=== PATIENT | male | born 1960 | race Caucasian/White ===

== ENCOUNTER → 2017-08-21 | Outpatient (CLI) | payer OTHER ==
[~2017-08-21] MED LIST: COZAAR 50 MG TA50 M2 PO; IRON325 PO; NUVIGIL250 MG PO; OMEPRAZOLE 20 M20 MG PO; PROZAC20 MG PO; ZOCOR20 MG PO
== END ==
LOC: M.MRI 09:15
DX: M48.061 Spinal stenosis, lumbar region without neurogenic claudication (principal); M54.16 Radiculopathy, lumbar region; M51.25 Other intervertebral disc displacement, thoracolumbar region; M51.27 Other intervertebral disc displacement, lumbosacral region; M47.897 Other spondylosis, lumbosacral region; M47.896 Other spondylosis, lumbar region; I10 Essential (primary) hypertension

== ENCOUNTER 2018-12-03 10:45 | Inpatient (IN) | payer OTHER ==
[~2018-12-03] VITALS: Ht 177.8 cm; Wt 116.1 kg
--- NOTE | ~2018-12-03 | CON ---
[address] [address] CONSULTATION Name: JEREMI ZARATE Room: [address] [facility].#: [id number] Admission: 12/03/18 Attend Phys: Queta Sánchez Discharge: Date of : 62 Report #: [id number] THIS REPORT FOR: //name// CC: Zen Beaulieu HISTORY OF PRESENT ILLNESS: The patient is a pleasant 58-year-old gentleman with past medical history significant for hypertension, osteoarthritis and gastroesophageal reflux disease is presenting with abdominal pain, nausea, vomiting for the last 2 days. The patient reports that his emesis was black in color and 2 days back he began having black maroon-colored stools as well. The patient denies having marquise blood in the stools or in his emesis. The patient denies any trouble swallowing. He does have daily reflux symptoms, which are well controlled on once a day, omeprazole. The patient denies any weight loss or other alarm symptoms at this time. The patient does admit using 4-6 tablets of ibuprofen every other day and has been doing this for the last several years. The patient also admits to taking some Pepto-Bismol over the last 2 days due to dyspepsia. PAST MEDICAL HISTORY: Hypertension, osteoarthritis, gastroesophageal reflux disease. PAST SURGICAL HISTORY: The patient had a bicep tendon repair. SOCIAL HISTORY: The patient quit smoking tobacco a few years back. The patient reports taking 4-6 alcoholic drinks per day. Denies any recreational drug use. FAMILY HISTORY: Significant for liver cancer in the mother, but there is no history of colorectal cancer. REVIEW OF SYSTEMS: Negative except for what was mentioned in the HPI. PHYSICAL EXAMINATION: VITAL SIGNS: Temperature 36.4, heart rate 121, respirations 20, blood pressure 146/100, pulse ox 99% on room air. GENERAL: The patient is alert, awake, oriented x 3. HEENT: Pupils are equal, round, reactive to light and accommodation. Mucous membranes are moist. There is no congestion. LUNGS: Clear to auscultation bilaterally. CARDIOVASCULAR: Rate and rhythm regular, S1, S2 present. ABDOMEN: Soft. There is no distention, guarding or rigidity. EXTREMITIES: Warm, well perfused. There is no edema. SKIN: Warm and dry. LABORATORY DATA: Hemoglobin 15.9, hematocrit 47.1, platelet count 269, WBC count 10.1. Sodium 140, potassium 3.5, chloride 101, bicarbonate 27, BUN 14, creatinine 1.3. CT abdomen and pelvis, no acute finding in [place] [address] CONSULTATION Name: JEREMI ZARATE Room: [address] [place] [facility].#: [id number] Admission: 12/03/18 Attend Phys: Queta Sánchez Discharge: Date of : 62 Report #: [id number]. ASSESSMENT AND PLAN: Pleasant 58-year-old gentleman with history outlined above, presents with epigastric abdominal pain, nausea and dark colored stools. There is a history significant for NSAID use on a regular basis. I would recommend upper GI evaluation to rule out peptic ulcer disease. Further recommendations can be based on results of the chest. By: [id number] Escudero MD /nt
[2018-12-03 10:55] VITALS: BP 156/100
[2018-12-03] MEDS ORDERED: TESTOSTERON100 MG/ML IM (10:58)
[2018-12-03 11:09] LABS: ABSOLUTE BASOPHILS 0.1 thou/uL (0.0-0.2); ABSOLUTE LYMPHOCYTES 2.4 thou/uL (0.8-5.3); ABSOLUTE MONOCYTES 0.9 thou/uL (0.0-1.2); ABSOLUTE NEUTROPHILS 6.8 thou/uL (1.6-8.1); EOSINOPHILS 0.5 %; HEMATOCRIT 47.1 % (42.0-52.0); HEMOGLOBIN 15.9 gm/dL (14.0-18.0); LYMPHOCYTES 23.7 %; MCH 30.7 pg (26.0-34.0); MCHC 33.8 g/dL (28.0-37.0); MCV 90.7 fL (80.0-100.0); MONOCYTES 8.4 %; MPV 8.2 fl. (7.2-11.1); NUCLEATED RBCS 0 /100WBC; PLATELET COUNT* 269 thou/uL (150-400); POLYS 66.4 %; RDW-CV 15.2 % (10.5-14.5); WBC 10.1 thou/uL (4.0-11.0)
[2018-12-03 11:27] LABS: ALBUMIN 3.4 g/dL (3.4-5.0); CREATININE 1.3 mg/dL (0.6-1.3); POTASSIUM 3.5 mmol/L (3.5-5.1); TOTAL BILIRUBIN 0.6 mg/dL (<0.1-1.0); TOTAL PROTEIN 7.1 g/dL (6.4-8.2); TROPONIN-I LEVEL 0.11 ng/mL (<0.06)
[2018-12-03 14:45] LABS: URINE BILIRUBIN NEGATIVE (Negative); URINE BLOOD NEGATIVE (Negative); URINE CLARITY CLEAR; URINE COLOR YELLOW; URINE GLUCOSE-RANDOM NEGATIVE (Negative); URINE KETONES TRACE (Negative); URINE LEUKOCYTES-REFLEX NEGATIVE (Negative); URINE NITRITE-REFLEX NEGATIVE (Negative); URINE PROTEIN NEGATIVE (Negative); URINE UROBILINOGEN 0.2 E.U./dl (0.2-1.0)
[2018-12-03 14:55] VITALS: BP 135/92
[2018-12-03 15:30] VITALS: BP 147/113
--- NOTE | 2018-12-03 15:58 | EKG ---
[place] [address] ELECTROCARDIOGRAM REPORT Name: TESSAJEREMI Blackwell Room: [address] ADM IN [facility].#: [id number] Admission: 12/03/18 Attend Phys: Queta Sánchez Discharge: Date of : 62 Report #: [id number] THIS REPORT FOR: //name// [facility] ED Test Date: 2018-12-03 Test Time: 10:55:18 Pat Name: JEREMI ZARATE Department: Room: [facility] Gender: M Child Welfare Counselor: Nafisa RED : 1960 Requested By: Romeo Monteiro Order Number: [id number] MD: Francisco J Faye Measurements Intervals [place] Rate: 122 P: 49 [place]: 131 QRS: 0 QRSD: 81 T: -10 QT: 282 QTc: 402 Interpretive Statements Sinus tachycardia Borderline T abnormalities, inferior leads Baseline wander in lead(s) V5 Compared to ECG 11/16/2015 21:53:13 T-wave abnormality now present Sinus rhythm no longer present Electronically Signed On 12-03-2018 15:58:24 CDT by Francisco J Faye [email or web address] <ELECTRONICALLY SIGNED> By: Francisco J Faye MD, FAC 12/03/18 1558 1055 1055 Francisco J Faye MD, [facility] /EPI
[2018-12-03] MEDS ORDERED: PROBIOTIC1 EAC1 PO (16:03)
[2018-12-03 17:06] LABS: HEMATOCRIT 44.7 % (42.0-52.0); HEMOGLOBIN 14.9 gm/dL (14.0-18.0); MCH 30.5 pg (26.0-34.0); MCHC 33.4 g/dL (28.0-37.0); MCV 91.3 fL (80.0-100.0); MPV 7.9 fl. (7.2-11.1); RBC 4.89 mil/uL (4.50-6.00); RDW-CV 15.4 % (10.5-14.5); WBC 6.7 thou/uL (4.0-11.0)
[2018-12-03 20:00] VITALS: BP 178/97
[2018-12-04] VITALS (8 sets, daily range): BP systolic 130–190; BP diastolic 88–112
[2018-12-04 04:35] LABS: CHOLESTEROL 170 mg/dL (<200); HDL CHOLESTEROL 73 mg/dL (>40); LDL CHOLESTEROL 74 mg/dL (<100); TC:HDL 2.3 Ratio (Not establshd); TRIGLYCERIDE 118 mg/dL (<150); VLDL 24 mg/dL (<40)
[2018-12-04 04:50] LABS: SERUM ASSESSMENT CLEAR
--- NOTE | 2018-12-04 06:02 | NUR ---
ASSUMED CARE OF PT AFTER REPORT AT 1930. PT A&OX4. VSS. PHYSICAL ASSESSMENT COMPLETED AND CHARTED. PT ON RA WITH 97% O2 SAT. PT TRACING SR ON TELE. PT UPADLIB TO RESTROOM. PT COMPLAINED OF LOWER BACK PAIN- PAIN MEDS GIVEN PER OCT. INSTRUCTED ON NPO POST MIDNIGHT FOR EGD TODAY. COMMUNICATES UNDERSTANDING. PT BP 175/112- DR FRANCISCO INFORMED WITH NO NEW ORDER. CALL LIGHT WITHIN REACH.
--- NOTE | 2018-12-04 10:31 | NUR ---
CM completed initial assessment to discuss d/c plan. pt A&Ox4. pt has family support; lives at home w/spouse. No hx w/DME. No hx w/SNF. NO Hx w/HH. Indepenent w/ADLs, active & employed. No anticipated needs at this time. CM to remain available to assist as needed.
--- NOTE | 2018-12-04 18:23 | CARDNUC ---
[place] [address] CARDIAC NUCLEAR IMAGING REPORT Name: JEREMI ZARATE Room: [address] [facility]#: [id number] Admission: 12/03/18 Attend Phys: Cristy Beaulieu Discharge: Date of : 62 Date of Service: 12/04/18 182 Report #: [id number] THIS REPORT FOR: //name// APPROVED REPORT Study performed: 12/04/2018 13:32:56 Exam: Nuclear Stress Test Indication: Elevated toponin Patient Location: In-Patient Room #: 207 Stress Tech: Bettie Farmer Stress Nurse: Virginia Sabillon RN NM Tech:ABILIO Bruce Ht: 5 ft 10 in Wt: 256 lbs BSA: 2.32 m2 HR: 98 bpm BP: 146/97 mmHg BMI: 36.72 Medical History Medications: Losartan Allergies: No known drug allergies Cardiac Risk Factors: Age, HTN, Hyperlipidemia, Tobacco History (Current/Recent) Stress Test Details Stress Test: Pharmacologic stress testing performed using 0.4 mg of regadenoson per 5 mL given IV over 10 seconds. HR Resting HR: 98 bpm Max Heart Rate (APMHR): 163 bpm Max HR Achieved: 115 bpm Target HR (85% APMHR): 138 bpm % of APMHR: 70 Recovery HR: 118 bpm HR response to stress: Normal HR response to stress BP Resting BP: 146/97 mmHg Max BP: 135/87 mmHg BP response to stress: Normal blood pressure response to stress. ECG Resting ECG: Sinus Rhythm Stress ECG: [place] [address] CARDIAC NUCLEAR IMAGING REPORT Name: JEREMI ZARATE Room: [address]#: [id number] Admission: 12/03/18 Attend Phys: Cristy Beaulieu Discharge: Date of : 62 Date of Service: 12/04/18 1822 Report #: [id number] Change: None Arrhythmia: None Recovery ECG: sinus tachycardia Recovery ST Change: None Recovery Arrhythmia: None Clinical Reason for Termination: Completed protocol The patient tolerated Lexiscan infusion without significant symptoms. Stress ECG Conclusion The baseline 12-lead EKG shows sinus rhythm without significant ST or T wave abnormality. EKGs obtained during and post Lexiscan infusion show sinus rhythm and sinus tachycardia with no significant ST or T wave changes when compared to baseline. There were no significant stress-induced arrhythmias. NM EXAM: Myocardial Perfusion REST/STRESS Imaging Protocol: Stress Tc-99m/Rest Tc-99m 2 days Pharmacologic Stress Pharmacologic stress test was performed by injecting Regadenoson 0.4 mg IV push followed by the intravenous injection of 40.2 mCi of Tc-99m Sestamibi. Time of stress injection: 1330 Date: 12/04/2018 Administration Route: IV Administration Site: Left AC Gated Stress SPECT was performed 40 minutes after stress injection. The images were gated to evaluate regional wall motion and calculate left ventricular ejection fraction. Prone imaging was performed. Study Quality Study: Good Artifact: No artifact Study Data Post stress, the left ventricular ejection was 70%.. Perfusion Post stress myocardial perfusion images show uniform uptake of the radioisotope [place] [address] CARDIAC NUCLEAR IMAGING REPORT Name: JEREMI ZARATE Room: [address] [facility]#: [id number] Admission: 12/03/18 Attend Phys: Cristy Beaulieu Discharge: Date of : 62 Date of Service: 12/04/18 1822 Report #: [id number] Wall Motion Normal left ventricular wall motion. Nuclear Conclusion ECG Findings: negative for ischemia Clinical Findings: negative for ischemia Nuclear Findings: negative for ischemia Exercise Capacity: not assessed Left Ventricular Function: normal Risk Study: low Myocardial perfusion images show no defect to suggest infarct or ischemia. Left ventricular systolic function appears normal on gated studies. This is a low risk study. <Conclusion> The baseline 12-lead EKG shows sinus rhythm without significant ST or T wave abnormality. EKGs obtained during and post Lexiscan infusion show sinus rhythm and sinus tachycardia with no significant ST or T wave changes when compared to baseline. There were no significant stress-induced arrhythmias. <ELECTRONICALLY SIGNED> By: Francisco J Faye MD, FACC 12/04/181821 21 21 Francisco J Faye MD, FACC /INF
--- NOTE | 2018-12-04 19:20 | NUR ---
PATIENT PROGRESSING TOWARDS GOALS. PAIN CONTROLLED WITH IV PAIN MEDICATION. NO COMPLAINTS OF SOA. UP AD MARII IN ROOM. GAIT STEADY. ADVANCE TO REGULAR DIET POST CARDIAC STRESS TEST. HE TOLERATED HIS DIET WELL WITHOUT NAUSEA OR VOMITING. STRESS TEST NEGATIVE PER CARDIOLOGY AND GAVE CV CLEARANCE FOR GI PROCEDURE/WORKUP. DR MICHAEL SAW PATIENT THIS EVENING. PLANNING FOR EGD TOMORROW. PATIENT UPDATED ON PLAN OF CARE AND AGREEABLE. IVF INFUSING. PROTONIX GTT INFUSING. HOURLY ROUNDING CHARTED. CALL LIGHT WITHIN REACH. WILL CONTINUE TO MONITOR.
[2018-12-04 22:11] LABS: GLYCOHEMOGLOBIN (HGB A1C) 5.4 % (4.8-5.6)
[2018-12-05] VITALS: BP 165/87
[2018-12-05 03:55] VITALS: BP 150/98
--- NOTE | 2018-12-05 04:35 | NUR ---
PATIENT PARTIALLY PROGRESSING TOWARDS GOALS: NO N/V/D THIS SHIFT. PATIENT NPO POST MIDNIGHT FOR EGD. CONSENT SIGNED AND IN THE CHART. PATIENT RECENTLY RECEIVED MORPHINE FOR BACK PAIN. WILL REASSESS PAIN WITHIN APPROPRIATE TIME FRAME. PATIENT ALSO ENCOURAGED TO REPOSITION FOR COMFORT. CALL LIGHT WITHIN REACH
[2018-12-05 05:12] LABS: ABSOLUTE EOSINOPHILS 0.1 thou/uL (0.0-0.7); ABSOLUTE LYMPHOCYTES 1.5 thou/uL (0.8-5.3); ABSOLUTE MONOCYTES 0.5 thou/uL (0.0-1.2); ABSOLUTE NEUTROPHILS 3.7 thou/uL (1.6-8.1); BASOPHILS 0.8 %; EOSINOPHILS 1.5 %; HEMATOCRIT 39.8 % (42.0-52.0); HEMOGLOBIN 13.3 gm/dL (14.0-18.0); LYMPHOCYTES 25.3 %; MCHC 33.3 g/dL (28.0-37.0); MONOCYTES 8.6 %; MPV 8.3 fl. (7.2-11.1); NUCLEATED RBCS 0 /100WBC; PLATELET COUNT* 188 thou/uL (150-400); POLYS 63.8 %; RBC 4.29 mil/uL (4.50-6.00); RDW-CV 15.4 % (10.5-14.5); WBC 5.8 thou/uL (4.0-11.0)
[2018-12-05 05:41] LABS: ALBUMIN 2.8 g/dL (3.4-5.0); CALCIUM 8.4 mg/dL (8.5-10.1); POTASSIUM 3.6 mmol/L (3.5-5.1); TOTAL BILIRUBIN 0.4 mg/dL (<0.1-1.0); TOTAL PROTEIN 5.7 g/dL (6.4-8.2)
--- NOTE | 2018-12-05 07:30 | NUR ---
ASSUMED CARE OF PT ASSESSED AND DOCUMENTED. PT IS ON CARDIAC MONITER TRACING SR HR 62. HE IS A&O WITH NO C/O PAIN OR NAUSEA. BP IS 179/96. ALL OTHER VITALS WNL. PT IS AFEBRILE. HE IS ON ROOM AIR. PT IS NPO FOR EGD TODAY. BED IS IN LOW POSITION CALL LIGHT IS IN REACH, WM.
[2018-12-05 07:59] VITALS: BP 179/96
[2018-12-05] MEDS ORDERED: PROTONIX40 M1 PO ×2 (11:32→11:37)
[2018-12-05 11:40] VITALS: BP 168/88
[2018-12-07 16:07] LABS: HEPATITIS B SURFACE AG Negative (Negative)
== END 2018-12-05 12:05 | disposition home or self-care (01) | DRG 377 ==
LOC: M.ERS 10:45 → M.2W 13:46 → M.TBA-ER 13:46 → M.2W 14:59
PROVIDERS: Emergency Medicine Emergency Medical Services; Internal Medicine Gastroenterology; ADMIT Internal Medicine
PROC: 0DB68ZX Excision of Stomach, Via Natural or Artificial Opening Endoscopic, Diagnostic (ICD-10-PCS; principal; 2018-12-05)
DX: K29.71 Gastritis, unspecified, with bleeding (principal); I21.A1 Myocardial infarction type 2; K26.4 Chronic or unspecified duodenal ulcer with hemorrhage; F32.9 Major depressive disorder, single episode, unspecified; I10 Essential (primary) hypertension; E78.00 Pure hypercholesterolemia, unspecified; K21.9 Gastro-esophageal reflux disease without esophagitis; M19.90 Unspecified osteoarthritis, unspecified site; E11.65 Type 2 diabetes mellitus with hyperglycemia; K31.9 Disease of stomach and duodenum, unspecified; Z87.891 Personal history of nicotine dependence; Z80.8 Family history of malignant neoplasm of other organs or systems; I25.2 Old myocardial infarction; Z82.49 Family history of ischemic heart disease and other diseases of the circulatory system; Z83.3 Family history of diabetes mellitus; Z82.61 Family history of arthritis; Z83.6 Family history of other diseases of the respiratory system; Z79.899 Other long term (current) drug therapy

== ENCOUNTER 2019-02-15 14:45 | Emergency (ER) | payer OTHER ==
[~2019-02-15] VITALS: Ht 182.9 cm; Wt 113.4 kg
[~2019-02-15 14:45] MED LIST changes: +PROBIOTIC1 EAC1 PO; +PROTONIX40 M1 PO; +TESTOSTERON100 MG/ML IM
[2019-02-15 15:03] LABS: URINE BILIRUBIN NEGATIVE (Negative); URINE BLOOD NEGATIVE (Negative); URINE CLARITY CLEAR; URINE COLOR YELLOW; URINE GLUCOSE-RANDOM NEGATIVE (Negative); URINE KETONES NEGATIVE (Negative); URINE LEUKOCYTES-REFLEX NEGATIVE (Negative); URINE NITRITE-REFLEX NEGATIVE (Negative); URINE PROTEIN NEGATIVE (Negative); URINE UROBILINOGEN 0.2 E.U./dl (0.2-1.0)
[2019-02-15 15:17] LABS: ABSOLUTE BASOPHILS 0.1 thou/uL (0.0-0.2); ABSOLUTE EOSINOPHILS 0.1 thou/uL (0.0-0.7); ABSOLUTE LYMPHOCYTES 1.5 thou/uL (0.8-5.3); ABSOLUTE MONOCYTES 0.5 thou/uL (0.0-1.2); ABSOLUTE NEUTROPHILS 4.3 thou/uL (1.6-8.1); BASOPHILS 0.8 %; EOSINOPHILS 0.8 %; HEMATOCRIT 44.5 % (42.0-52.0); HEMOGLOBIN 14.4 gm/dL (14.0-18.0); MCH 27.9 pg (26.0-34.0); MCHC 32.4 g/dL (28.0-37.0); MCV 85.9 fL (80.0-100.0); MONOCYTES 7.1 %; MPV 7.8 fl. (7.2-11.1); NUCLEATED RBCS 0 /100WBC; PLATELET COUNT* 281 thou/uL (150-400); POLYS 67.3 %; RBC 5.18 mil/uL (4.50-6.00); RDW-CV 15.3 % (10.5-14.5); WBC 6.4 thou/uL (4.0-11.0)
[2019-02-15 15:25] LABS: CALCIUM 9.1 mg/dL (8.5-10.1); CREATININE 1.1 mg/dL (0.6-1.3); POTASSIUM 3.5 mmol/L (3.5-5.1)
[2019-02-15 15:29] LABS: ALBUMIN 3.6 g/dL (3.4-5.0); MAGNESIUM 1.9 mg/dL (1.8-2.4); TOTAL BILIRUBIN 0.8 mg/dL (<0.1-1.0); TOTAL PROTEIN 7.1 g/dL (6.4-8.2)
[2019-02-15 15:30] LABS: BE -1.2 mmol/L (-2 to +3); PO2 91.7 mmHg (75.0-100.0); pH 7.469 (7.340-7.450)
[2019-02-15] MEDS ORDERED: AMBIEN 10 MG TA10 MG PO (20:37)
[2019-02-15] MEDS ORDERED: ZOFRAN ODT4 MG SUBLING (20:49)
[2019-02-15] MEDS ORDERED: TRAMADOL 50 MG50 MG PO (20:49)
[2019-02-15 21:05] VITALS: BP 148/90
--- NOTE | 2019-02-16 10:57 | EKG ---
[place] [address] ELECTROCARDIOGRAM REPORT Name: TESSAJEREMI Blackwell Room: [facility]#: [id number] Admission: 02/15/19 Attend Phys: Discharge: 02/15/19 Date of : 62 Report #: [id number] THIS REPORT FOR: //name// [facility] ED Test Date: 2019-02-15 Test Time: 15:02:25 Pat Name: JEREMI ZARATE Department: Room: Gender: M Brain Wave Technician: : 1960 Requested By: Toña Pink Order Number: [id number] Reading MD: Francisco J Faye Measurements Intervals [place] Rate: 96 P: 28 [place]: 141 QRS: 4 QRSD: 89 T: -13 QT: 347 QTc: 439 Interpretive Statements Sinus rhythm Borderline T abnormalities, inferior leads Compared to ECG 12/03/2018 10:55:18 Sinus tachycardia no longer present T-wave abnormality still present Electronically Signed On 02-16-2019 10:57:45 CDT by Francisco J Faye [email or web address] <ELECTRONICALLY SIGNED> By: Francisco J Faye MD, [facility] 02/16/19 1057 1502 1502 Francisco J aFye MD, [facility] /EPI
== END 2019-02-15 21:05 | disposition home or self-care (01) ==
LOC: M.ERS 14:45
PROVIDERS: Personal Emergency Response Attendant
DX: R11.2 Nausea with vomiting, unspecified (principal); M54.9 Dorsalgia, unspecified; F32.9 Major depressive disorder, single episode, unspecified; I10 Essential (primary) hypertension; E78.00 Pure hypercholesterolemia, unspecified; K21.9 Gastro-esophageal reflux disease without esophagitis; F17.220 Nicotine dependence, chewing tobacco, uncomplicated